=== PATIENT | female | born 1975 | race Hispanic/Latino ===

== ENCOUNTER → 2020-09-28 | Outpatient (CLI) | payer MEDICAID ==
[~2020-09-28] VITALS: Ht 149.9 cm; Wt 73.0 kg
[~2020-09-28] MED LIST: CEFTRIAXONE 1G VIAL IVP SCH; GENTAMICIN 80 MG/NS 100 ML PB 100 ML IV SCH
[2020-09-28 11:00] LABS: BASOPHILS % (AUTO) 0.5 % (0.0-5.0); EOSINOPHILS % (AUTO) 1.2 % (0.0-8.0); HEMATOCRIT 35.4 % (36-48); LYMPHOCYTES % (AUTO) 33.1 % (21.0-51.0); MEAN CORPUSCULAR HEMOGLOBIN 28.7 pg (27.0-33.0); MEAN CORPUSCULAR HGB CONC 32.8 g/dL (32.0-36.0); MEAN CORPUSCULAR VOLUME 87.6 fL (79-99); MONOCYTES % (AUTO) 6.4 % (3.0-13.0); NEUTROPHILS % (AUTO) 58.5 % (40.0-77.0); PLATELET COUNT (AUTO) 437 K/uL (130-400); RED BLOOD CELL COUNT(AUTO) 4.04 MIL/uL (4.00-5.50); RED CELL DISTRIBUTION WIDTH 13.4 % (11.0-15.5); WHITE BLOOD COUNT (AUTO) 8.6 K/uL (4.8-10.8)
[2020-09-28 11:07] LABS: CREATININE 0.6 mg/dL (0.5-1.5)
[2020-09-28 11:17] LABS: INR 0.97 (0.85-1.15); PROTHROMBIN TIME 10.6 SEC (9.6-11.6)
[2020-09-28 11:18] LABS: PARTIAL THROMBOPLASTIN TIME 22.5 SEC (26.3-35.5)
[2020-09-28 11:40] LABS: APPEARANCE,URINE Clear (CLEAR); BILIRUBIN,URINE Negative (NEGATIVE); COLOR,URINE Yellow (YELLOW); GLUCOSE, URINE (UA) Negative (NEGATIVE); KETONES,URINE Negative (NEGATIVE); LEUKOCYTE ESTERASE ,URINE Moderate (NEGATIVE); NITRATE,URINE Negative (NEGATIVE); OCCULT BLOOD,URINE Trace (NEGATIVE); PH,URINE 6.5 (5.0-8.0); PROTEIN,URINE Negative (NEGATIVE)
[2020-09-28 12:03] LABS: BACTERIA,URINE Rare /HPF (None Seen); MUCUS,URINE Rare LPF (None Seen); RBC,URINE 0-1 /HPF (0-1); SQUAMOUS EPITHELIAL CELL,UR Rare /HPF (0-2)
== END | disposition home or self-care (01) ==
LOC: EDSTATUS 09:00 → DAH 10:00
PROVIDERS: ATTEND Urology
DX: Z01.818 Encounter for other preprocedural examination (principal); Z20.822 Contact with and (suspected) exposure to COVID-19; N20.0 Calculus of kidney; Z79.01 Long term (current) use of anticoagulants
CPT/HCPCS: 36415; 80048; 81001; 85025; 85610; 85730; 87088; 87635; A6260; C9803; J1580

== ENCOUNTER 2020-11-15 07:23 | Inpatient (IN) | payer MEDICAID ==
[2020-11-09 13:04] LABS: BASOPHILS % (AUTO) 0.6 % (0.0-5.0); EOSINOPHILS % (AUTO) 2.4 % (0.0-8.0); LYMPHOCYTES % (AUTO) 26.7 % (21.0-51.0); MEAN CORPUSCULAR HEMOGLOBIN 27.9 pg (27.0-33.0); MEAN CORPUSCULAR HGB CONC 32.2 g/dL (32.0-36.0); MEAN CORPUSCULAR VOLUME 86.9 fL (79-99); MONOCYTES % (AUTO) 7.2 % (3.0-13.0); NEUTROPHILS % (AUTO) 62.5 % (40.0-77.0); PLATELET COUNT (AUTO) 466 K/uL (130-400); RED BLOOD CELL COUNT(AUTO) 4.26 MIL/uL (4.00-5.50); RED CELL DISTRIBUTION WIDTH 13.7 % (11.0-15.5); WHITE BLOOD COUNT (AUTO) 6.6 K/uL (4.8-10.8)
[2020-11-09 13:10] LABS: APPEARANCE,URINE Cloudy (CLEAR); BILIRUBIN,URINE Negative (NEGATIVE); COLOR,URINE Yellow (YELLOW); GLUCOSE, URINE (UA) Negative (NEGATIVE); KETONES,URINE Negative (NEGATIVE); LEUKOCYTE ESTERASE ,URINE Large (NEGATIVE); NITRATE,URINE Positive (NEGATIVE); OCCULT BLOOD,URINE Nonhemolyzed Trace (NEGATIVE); PH,URINE 6.5 (5.0-8.0); PROTEIN,URINE Negative (NEGATIVE); UROBILINOGEN,URINE 0.2 mg/dL (0.2-1.0)
[2020-11-09 13:15] LABS: CREATININE 0.6 mg/dL (0.5-1.5); POTASSIUM 3.6 mmol/L (3.5-5.1)
[2020-11-09 13:22] LABS: INR 0.97 (0.85-1.15); PROTHROMBIN TIME 10.6 SEC (9.6-11.6)
[2020-11-09 13:24] LABS: PARTIAL THROMBOPLASTIN TIME 24.1 SEC (26.3-35.5)
[2020-11-09 13:28] LABS: BACTERIA,URINE Many /HPF (None Seen); SQUAMOUS EPITHELIAL CELL,UR Rare /HPF (0-2); WBC,URINE 51-100 /HPF (0-1)
[2020-11-14 10:58] VITALS: BP 120/69
[2020-11-15] VITALS (51 sets, daily range): BP systolic 90–218; BP diastolic 47–111
[~2020-11-15] VITALS: Ht 149.9 cm; Wt 71.2 kg
[~2020-11-15 07:23] MED LIST changes: -CEFTRIAXONE 1G VIAL IVP SCH; -GENTAMICIN 80 MG/NS 100 ML PB 100 ML IV SCH; +NITR100C4 PO
[2020-11-15] MEDS ORDERED: DEXAMETHASONE SOD PHOSPHATE 10MG/ML 1ML VIAL ONE (07:55)
[2020-11-15] MEDS ORDERED: SUCCINYLCHOLINE 200MG/10ML SYR ONE (07:55)
[2020-11-15] MEDS ORDERED: LIDOCAINE PF 100MG/5ML (2%) SYRINGE 5ML ONE (07:55)
[2020-11-15] MEDS ORDERED: FENTANYL CITRATE PF 50 MCG/1 ML 2ML VIAL ONE (07:56)
[2020-11-15] MEDS ORDERED: PROPOFOL 10 MG/ML 20ML VIAL IV ONE (07:56)
[2020-11-15] MEDS ORDERED: MIDAZOLAM HCL 1 MG/ML 2ML VIAL ONE ×2 (07:56→11:19)
[2020-11-15] MEDS ORDERED: ONDANSETRON 4MG INJ ONE (07:56)
[2020-11-15] MEDS ORDERED: LACTATED RINGERS 1000ML 1,000 ML IV ONE (07:57)
[2020-11-15] MEDS ORDERED: MEPERIDINE-PF 25 MG/ML SYG ONE ×2 (07:57→09:47)
[2020-11-15] MEDS: CEFTRIAXONE 1G VIAL IVP SCH ×2 (08:34→08:55)
[2020-11-15] MEDS ORDERED: KETOROLAC 30MG VIAL (30MG/ML) ONE (09:46)
[2020-11-15] MEDS ORDERED: IPRATROPIUM/ALBUTEROL SULFATE 3 ML SOLUTION IH SCH (11:30)
[2020-11-15] MEDS ORDERED: RACEPINEPHRINE HCL 2.25% 0.5 ML NEB SOLN ONE ×2 (11:41→11:45)
[2020-11-15] MEDS ORDERED: RACEPINEPHRINE HCL 2.25% 0.5 ML NEB SOLN NEB SCH (12:00)
[2020-11-15] MEDS ORDERED: SOLU-MEDROL 125MG VIAL ONE (13:55)
[2020-11-15] MEDS ORDERED: ONDANSETRON 4MG INJ IV PRN (15:00)
[2020-11-15] MEDS ORDERED: ACETAMINOPHEN 325 MG TAB PO PRN (15:00)
[2020-11-15] MEDS ORDERED: LACTULOSE 20 GM/30 ML UDCUP PO PRN (15:00)
[2020-11-15] MEDS ORDERED: SOLU-MEDROL 125MG VIAL IV SCH (15:00)
[2020-11-15] MEDS ORDERED: ONDANSETRON 4MG INJ IVP PRN (15:30)
[2020-11-15] MEDS ORDERED: LACTATED RINGERS 1000ML 1,000 ML IV SCH (15:30)
[2020-11-15] MEDS ORDERED: IPRATROPIUM/ALBUTEROL SULFATE 3 ML SOLUTION IH ONE (15:30)
[2020-11-15] MEDS ORDERED: IPRATROPIUM/ALBUTEROL SULFATE 3 ML SOLUTION IH PRN (15:30)
[2020-11-15] MEDS ORDERED: DiphenhydrAMINE HCL 50 MG/ML VIAL IV ONE (16:00)
[2020-11-15] MEDS: DEXAMETHASONE SOD PHOSPHATE 10MG/ML 1ML VIAL ONE ×2 (16:20→17:06)
[2020-11-15] MEDS ORDERED: DEXAMETHASONE SOD PHOSPHATE 4 MG/ML 1ML VIAL IVP SCH (16:30)
[2020-11-15] MEDS ORDERED: DEXAMETHASONE SOD PHOSPHATE 4 MG/ML 1ML VIAL IM SCH (16:30)
[2020-11-15] MEDS ORDERED: [UNRECOGNIZED DRUG - REMARK] MISC STA (16:33)
[2020-11-15] MEDS ORDERED: DiphenhydrAMINE HCL 50 MG/ML VIAL ONE (17:12)
[2020-11-15] MEDS: IPRATROPIUM/ALBUTEROL SULFATE 3 ML SOLUTION IH SCH (18:00)
[2020-11-15] MEDS ORDERED: PHARMACY COMMUNICATION MISC SCH (18:30)
[2020-11-15] MEDS: RACEPINEPHRINE HCL 2.25% 0.5 ML NEB SOLN NEB PRN (20:25)
[2020-11-15] MEDS: FAMOTIDINE 20MG TAB PO SCH (20:25)
[2020-11-15] MEDS: DEXAMETHASONE SOD PHOSPHATE 4 MG/ML 1ML VIAL IVP SCH (20:25)
[2020-11-15] MEDS ORDERED: PROPOFOL 1000 MG/100 ML 100 ML IV ONE (21:28)
[2020-11-15] MEDS ORDERED: FENTANYL 2500MCG+NS 250ML 250 ML IV ONE (21:29)
[2020-11-15] MEDS: PROPOFOL 1000 MG/100 ML IV PRN (23:22)
[2020-11-15 23:53] LABS: ABG BASE EXCESS -2.4 mmol/L (-2.0-3.0); ABG HCO3 22.9 mmol/L (21.0-28.0); ABG OXYGEN SATURATION 94.8 % (95.0-99.0); ABG PCO2 41 mmHg (32-45)
[2020-11-16] VITALS (45 sets, daily range): BP systolic 89–138; BP diastolic 35–78
[2020-11-16 03:32] LABS: BASOPHILS % (AUTO) 0.2 % (0.0-5.0); HEMATOCRIT 33.8 % (36-48); LYMPHOCYTES % (AUTO) 10.5 % (21.0-51.0); MEAN CORPUSCULAR HEMOGLOBIN 29.3 pg (27.0-33.0); MEAN CORPUSCULAR HGB CONC 33.4 g/dL (32.0-36.0); MEAN CORPUSCULAR VOLUME 87.6 fL (79-99); MONOCYTES % (AUTO) 1.6 % (3.0-13.0); NEUTROPHILS % (AUTO) 87.2 % (40.0-77.0); PLATELET COUNT (AUTO) 442 K/uL (130-400); RED BLOOD CELL COUNT(AUTO) 3.86 MIL/uL (4.00-5.50); RED CELL DISTRIBUTION WIDTH 13.8 % (11.0-15.5); WHITE BLOOD COUNT (AUTO) 10.9 K/uL (4.8-10.8)
[2020-11-16] MEDS: DEXAMETHASONE SOD PHOSPHATE 4 MG/ML 1ML VIAL IVP SCH ×4 (03:32→21:45)
[2020-11-16 03:42] LABS: CREATININE 0.4 mg/dL (0.5-1.5); POTASSIUM 4.3 mmol/L (3.5-5.1)
[2020-11-16] MEDS: PROPOFOL 1000 MG/100 ML IV PRN ×3 (04:42→16:39)
[2020-11-16] MEDS ORDERED: FENTANYL CITRATE PF 0.05 MG/ML 1,000 MCG in 0.9%NACL 100ML 100 ML IVPB SCH (05:30)
[2020-11-16] MEDS: CEFTRIAXONE 1G VIAL IVP SCH (05:48)
[2020-11-16] MEDS: IPRATROPIUM/ALBUTEROL SULFATE 3 ML SOLUTION IH SCH ×5 (06:00→22:00)
[2020-11-16 06:54] LABS: ABG BASE EXCESS -0.7 mmol/L (-2.0-3.0); ABG HCO3 24.7 mmol/L (21.0-28.0); ABG OXYGEN SATURATION 96.1 % (95.0-99.0); ABG PCO2 43 mmHg (32-45)
[2020-11-16] MEDS: FAMOTIDINE 20MG TAB PO SCH ×2 (08:58→21:45)
[2020-11-16] MEDS: ENOXAPARIN SODIUM 40 MG/0.4 ML SYRINGE SQ SCH (13:25)
[2020-11-16] MEDS ORDERED: FENTANYL 2500MCG+NS 250ML 250 ML IV ONE (16:36)
[2020-11-17] VITALS (23 sets, daily range): BP systolic 107–160; BP diastolic 51–104
[2020-11-17] MEDS: ACETAMINOPHEN 325 MG TAB PO PRN (01:25)
[2020-11-17] MEDS: DEXAMETHASONE SOD PHOSPHATE 4 MG/ML 1ML VIAL IVP SCH ×4 (03:18→21:04)
[2020-11-17] MEDS: CEFTRIAXONE 1G VIAL IVP SCH (05:17)
[2020-11-17] MEDS: IPRATROPIUM/ALBUTEROL SULFATE 3 ML SOLUTION IH SCH ×5 (06:00→22:45)
[2020-11-17] MEDS: FAMOTIDINE 20MG TAB PO SCH ×2 (08:18→21:04)
[2020-11-17] MEDS: ENOXAPARIN SODIUM 40 MG/0.4 ML SYRINGE SQ SCH (08:18)
[2020-11-17] MEDS: RACEPINEPHRINE HCL 2.25% 0.5 ML NEB SOLN NEB PRN (12:48)
[2020-11-17] MEDS ORDERED: SOLU-MEDROL 40MG VIAL IVP ONE (13:00)
[2020-11-18] VITALS (15 sets, daily range): BP systolic 111–141; BP diastolic 46–87
[2020-11-18] MEDS: IPRATROPIUM/ALBUTEROL SULFATE 3 ML SOLUTION IH SCH ×6 (03:27→22:46)
[2020-11-18 03:29] LABS: BASOPHILS % (AUTO) 0.2 % (0.0-5.0); HEMATOCRIT 35.2 % (36-48); LYMPHOCYTES % (AUTO) 13.8 % (21.0-51.0); MEAN CORPUSCULAR HEMOGLOBIN 28.6 pg (27.0-33.0); MEAN CORPUSCULAR VOLUME 86.9 fL (79-99); MONOCYTES % (AUTO) 3.5 % (3.0-13.0); NEUTROPHILS % (AUTO) 81.1 % (40.0-77.0); PLATELET COUNT (AUTO) 456 K/uL (130-400); RED BLOOD CELL COUNT(AUTO) 4.05 MIL/uL (4.00-5.50); RED CELL DISTRIBUTION WIDTH 13.7 % (11.0-15.5); WHITE BLOOD COUNT (AUTO) 11.9 K/uL (4.8-10.8)
[2020-11-18 03:36] LABS: CARBON DIOXIDE 26 mmol/L (21-32); CHLORIDE 105 mmol/L (101-111); CREATININE 0.6 mg/dL (0.5-1.5); GLOMERULAR FILTR. RATE CALC 114 mL/min (>60); GLUCOSE,RANDOM 138 mg/dL (70-105); POTASSIUM 4.1 mmol/L (3.5-5.1); SODIUM SERUM 140 mmol/L (136-145); UREA NITROGEN, BLOOD 18 mg/dL (7-18)
[2020-11-18 03:42] LABS: CRP QUANTITATIVE < 2.00 mg/L (0.00-9.0)
[2020-11-18] MEDS: DEXAMETHASONE SOD PHOSPHATE 4 MG/ML 1ML VIAL IVP SCH ×2 (03:44→08:21)
[2020-11-18] MEDS: CEFTRIAXONE 1G VIAL IVP SCH ×2 (05:09→14:17)
[2020-11-18] MEDS: FAMOTIDINE 20MG TAB PO SCH ×2 (08:21→20:35)
[2020-11-18] MEDS: ENOXAPARIN SODIUM 40 MG/0.4 ML SYRINGE SQ SCH (08:22)
[2020-11-18] MEDS: DEXAMETHASONE 4 MG TAB PO SCH ×3 (09:31→20:35)
[2020-11-18 15:00] LABS: APPEARANCE,URINE Cloudy (CLEAR); BILIRUBIN,URINE Negative (NEGATIVE); COLOR,URINE Yellow (YELLOW); GLUCOSE, URINE (UA) Negative (NEGATIVE); KETONES,URINE Negative (NEGATIVE); LEUKOCYTE ESTERASE ,URINE Negative (NEGATIVE); NITRATE,URINE Negative (NEGATIVE); OCCULT BLOOD,URINE Trace (NEGATIVE); PH,URINE 7.5 (5.0-8.0); PROTEIN,URINE Negative (NEGATIVE)
[2020-11-18 15:22] LABS: AMORPHOUS SEDIMENT,UR Moderate /LPF (None Seen); BACTERIA,URINE Few /HPF (None Seen); MUCUS,URINE Few LPF (None Seen); SQUAMOUS EPITHELIAL CELL,UR Few /HPF (0-2); WBC,URINE 0-1 /HPF (0-1)
[2020-11-19] VITALS (13 sets, daily range): BP systolic 108–132; BP diastolic 54–78
[2020-11-19] MEDS: IPRATROPIUM/ALBUTEROL SULFATE 3 ML SOLUTION IH SCH ×6 (01:52→22:39)
[2020-11-19 05:18] LABS: BASOPHILS % (AUTO) 0.2 % (0.0-5.0); HEMATOCRIT 39.2 % (36-48); LYMPHOCYTES % (AUTO) 14.4 % (21.0-51.0); MEAN CORPUSCULAR HEMOGLOBIN 28.3 pg (27.0-33.0); MEAN CORPUSCULAR HGB CONC 32.1 g/dL (32.0-36.0); MEAN CORPUSCULAR VOLUME 87.9 fL (79-99); MONOCYTES % (AUTO) 4.2 % (3.0-13.0); NUCLEATED RED BLOOD CELLS 0.2 % (0.0-0.19); PLATELET COUNT (AUTO) 539 K/uL (130-400); RED BLOOD CELL COUNT(AUTO) 4.46 MIL/uL (4.00-5.50); RED CELL DISTRIBUTION WIDTH 13.9 % (11.0-15.5)
[2020-11-19 05:39] LABS: CREATININE 0.6 mg/dL (0.5-1.5); POTASSIUM 4.2 mmol/L (3.5-5.1)
[2020-11-19] MEDS: FAMOTIDINE 20MG TAB PO SCH ×2 (09:26→20:31)
[2020-11-19] MEDS: DEXAMETHASONE 4 MG TAB PO SCH ×3 (09:39→20:32)
[2020-11-19] MEDS: ENOXAPARIN SODIUM 40 MG/0.4 ML SYRINGE SQ SCH (09:40)
[2020-11-19] MEDS ORDERED: GADOTERATE MEGLUMINE 10 MMOL/20 ML VIAL IV ONE (09:54)
[2020-11-19] MEDS ORDERED: IOHEXOL-350 75 ML VIAL IV ONE (11:31)
[2020-11-19] MEDS: ACETAMINOPHEN 325 MG TAB PO PRN (12:30)
[2020-11-19] MEDS: CEFTRIAXONE 1G VIAL IVP SCH (15:13)
[2020-11-20] VITALS: BP 105/65
[2020-11-20] MEDS: IPRATROPIUM/ALBUTEROL SULFATE 3 ML SOLUTION IH SCH ×4 (02:39→14:33)
[2020-11-20 04:00] VITALS: BP 102/60
[2020-11-20 08:04] VITALS: BP 119/66
[2020-11-20] MEDS: FAMOTIDINE 20MG TAB PO SCH (09:46)
[2020-11-20] MEDS: DEXAMETHASONE 4 MG TAB PO SCH ×2 (09:47→13:22)
[2020-11-20] MEDS: ENOXAPARIN SODIUM 40 MG/0.4 ML SYRINGE SQ SCH (09:48)
[2020-11-20 12:00] VITALS: BP 111/67
[2020-11-20] MEDS: CEFTRIAXONE 1G VIAL IVP SCH (13:21)
== END 2020-11-20 15:36 | disposition home or self-care (01) | DRG 133 ==
LOC: DAH 07:23 → OBSVTOIN 07:24 → DAHIP 07:24 → INTOOBSV 07:24 → DAH 07:24 → 2CH 18:15 → 3DH 11-18 15:31
PROVIDERS: ADMIT Internal Medicine; ATTEND Internal Medicine
PROC: 5A1935Z Respiratory Ventilation, Less than 24 Consecutive Hours (ICD-10-PCS; 2020-11-15)
PROC: 0BH17EZ Insertion of Endotracheal Airway into Trachea, Via Natural or Artificial Opening (ICD-10-PCS; 2020-11-15)
PROC: 0TF4XZZ Fragmentation in Left Kidney Pelvis, External Approach (ICD-10-PCS; principal; 2020-11-15 08:40)
DX: J96.00 Acute respiratory failure, unspecified whether with hypoxia or hypercapnia (principal); J45.909 Unspecified asthma, uncomplicated; N20.0 Calculus of kidney; Z20.822 Contact with and (suspected) exposure to COVID-19; Z87.442 Personal history of urinary calculi; Z82.5 Family history of asthma and other chronic lower respiratory diseases; Z82.49 Family history of ischemic heart disease and other diseases of the circulatory system; Z87.440 Personal history of urinary (tract) infections
CPT/HCPCS: 31500; 36415; 36600; 70498; 70544; 70553; 71045; 74018; 80048; 81001; 82435; 82803; 82947; 82948; 83605; 84132; 84295; 84703; 85018; 85025; 85610; 85651; 85730; 86140; 87077; 87088; 87186; 87426; 92610; 94002; 94640; G0378; J0330; J0696; J1100; J1200; J1650; J1885; J2001; J2175; J2250; J2405; J2704; J2920; J2930; J3010; J7120; J8540; Q9967

== ENCOUNTER 2022-10-16 06:52 | Day surgery (SDC) | payer MEDICAID ==
[2022-10-14 12:10] LABS: BASOPHILS % (AUTO) 0.7 % (0.0-5.0); EOSINOPHILS % (AUTO) 1.3 % (0.0-8.0); HEMATOCRIT 38.3 % (36-48); LYMPHOCYTES % (AUTO) 21.8 % (21.0-51.0); MEAN CORPUSCULAR HEMOGLOBIN 28.8 pg (27.0-33.0); MEAN CORPUSCULAR HGB CONC 32.9 g/dL (32.0-36.0); MEAN CORPUSCULAR VOLUME 87.4 fL (79-99); MONOCYTES % (AUTO) 3.5 % (3.0-13.0); NEUTROPHILS % (AUTO) 72.4 % (40.0-77.0); PLATELET COUNT (AUTO) 390 K/uL (130-400); RED BLOOD CELL COUNT(AUTO) 4.38 MIL/uL (4.00-5.50); RED CELL DISTRIBUTION WIDTH 13.7 % (11.0-15.5); WHITE BLOOD COUNT (AUTO) 7.5 K/uL (4.8-10.8)
[2022-10-14 12:14] LABS: APPEARANCE,URINE CLOUDY (CLEAR); BILIRUBIN,URINE NEGATIVE (NEGATIVE); COLOR,URINE LIGHT-ORANGE (YELLOW); GLUCOSE, URINE (UA) NEGATIVE (NEGATIVE); KETONES,URINE NEGATIVE (NEGATIVE); LEUKOCYTE ESTERASE ,URINE 75 Leu/uL (NEGATIVE); NITRATE,URINE NEGATIVE (NEGATIVE); OCCULT BLOOD,URINE LARGE (NEGATIVE); PH,URINE 6.5 (5.0-8.0); PROTEIN,URINE 100 mg/dL (NEGATIVE); UROBILINOGEN,URINE 0.2 mg/dL (0.2-1.0)
[2022-10-14 12:18] LABS: CREATININE 0.6 mg/dL (0.5-1.5); POTASSIUM 4.1 mmol/L (3.5-5.1)
[2022-10-14 12:29] LABS: BACTERIA,URINE RARE /HPF (None Seen); MUCUS,URINE RARE LPF (None Seen); RBC,URINE TNTC /HPF (0-1); SQUAMOUS EPITHELIAL CELL,UR FEW /HPF (0-2); WBC,URINE 26-50 /HPF (0-1)
[2022-10-14 13:09] VITALS: BP 121/74; PULSE 85; RESP 16
[2022-10-16] VITALS (18 sets, daily range): BP systolic 98–147; BP diastolic 55–83; PULSE 63–92; RESP 14–20
[~2022-10-16] VITALS: Ht 149.9 cm; Wt 73.1 kg
[~2022-10-16 06:52] MED LIST changes: +HYDR-4060 PO; +IBUP-2077 PO; -NITR100C4 PO; +SULF1TAB89 PO
[2022-10-16] MEDS ORDERED: ONDANSETRON 4MG INJ ONE (07:11)
[2022-10-16] MEDS ORDERED: DEXAMETHASONE SOD PHOSPHATE 10MG/ML 1ML VIAL ONE ×2 (07:11→09:42)
[2022-10-16] MEDS ORDERED: FENTANYL CITRATE PF 50 MCG/1 ML 2ML VIAL ONE (07:11)
[2022-10-16] MEDS ORDERED: LIDOCAINE PF 100MG/5ML (2%) SYRINGE 5ML ONE (07:11)
[2022-10-16] MEDS ORDERED: SUCCINYLCHOLINE 200MG/10ML SYR ONE (07:11)
[2022-10-16] MEDS ORDERED: MIDAZOLAM HCL 1 MG/ML 2ML VIAL ONE (07:11)
[2022-10-16] MEDS ORDERED: PROPOFOL 10 MG/ML 20ML VIAL IV ONE (07:11)
[2022-10-16] MEDS ORDERED: LACTATED RINGERS 1000ML 1,000 ML IV ONE (07:18)
[2022-10-16] MEDS: CEFTRIAXONE 1G VIAL ONE ×2 (07:53→08:41)
[2022-10-16] MEDS ORDERED: LEVO-70 PO (08:43)
[2022-10-16] MEDS ORDERED: KETOROLAC 30MG VIAL (30MG/ML) ONE (09:42)
[2022-10-16] MEDS ORDERED: DiphenhydrAMINE HCL 50 MG/ML VIAL ONE (09:42)
== END 2022-10-16 11:35 | disposition home or self-care (01) ==
LOC: DAH 06:52
PROVIDERS: ATTEND Urology
DX: Z46.6 Encounter for fitting and adjustment of urinary device (principal); Z20.822 Contact with and (suspected) exposure to COVID-19; N20.1 Calculus of ureter; J45.909 Unspecified asthma, uncomplicated; M19.90 Unspecified osteoarthritis, unspecified site; Z98.890 Other specified postprocedural states
CPT/HCPCS: 80048; 84703; 85025; 87088; 87426; 81001; 36415; 93005; 50590; 52310; 74018; A6260; A4663; J7120; J1200; J3010; J0330; J1100 ×2; J3490 ×2; J0696; J2250; J2405; J1885; A4215; A4223; A4222; A4221; A4600; J2001; J2704